=== PATIENT | female | born 1990 | race Caucasian/White ===

== ENCOUNTER 2016-05-31 17:47 | Emergency (ER) | payer OTHER ==
[~2016-05-31] VITALS: Ht 170.2 cm; Wt 107.3 kg
[~2016-05-31 17:47] MED LIST: ENDOCET 5-3251 EACH PO; FIORICET,ESG1 TABLET PO; IBUPROFEN800 MG PO
[2016-05-31 20:20] LABS: ADD MIUA? NO; BILIRUBIN NEGATIVE; BLOOD NEGATIVE; COLOR YELLOW ((YELLOW)); GLUCOSE (STRIP) NEGATIVE; KETONES NEGATIVE; LEUKOCYTES NEGATIVE; NITRITE NEGATIVE; PROTEIN (STRIP) NEGATIVE; SPECIFIC GRAVITY 1.008 (1.000-1.030); UCUL ADDED? NO; UROBILINOGEN 0.2 MG/DL (0.2-1.0)
[2016-05-31 20:58] VITALS: BP 161/80
== END 2016-05-31 20:57 | disposition home or self-care (01) ==
LOC: EME 17:47
PROVIDERS: Physician Assistant
DX: O26.91 Pregnancy related conditions, unspecified, first trimester (principal); Z3A.12 12 weeks gestation of pregnancy; R10.9 Unspecified abdominal pain; S39.92XA Unspecified injury of lower back, initial encounter; X50.1XXA Overexertion from prolonged static or awkward postures, initial encounter; Y92.230 Patient room in hospital as the place of occurrence of the external cause; Y99.0 Civilian activity done for income or pay
CPT/HCPCS: 81003; 99281; 99284

== ENCOUNTER 2016-10-06 16:32 | Outpatient (CLI) | payer OTHER ==
[~2016-10-06] VITALS: Ht 170.2 cm; Wt 113.2 kg
[2016-10-06 16:46] VITALS: BP 123/68
[2016-10-06] MEDS ORDERED: DICLEGIS DR 101 EACH PO ×2 (17:12→17:13)
[2016-10-06] MEDS ORDERED: ZANTAC150 MG PO (17:13)
[2016-10-06 17:14] LABS: EOSINOPHIL (%) 1.2 % (0-5); EOSINOPHIL COUNT 0.1 K/uL (0-0.3); HEMATOCRIT 34.3 % (36.0-46.0); IMMATURE GRANULOCYTE (%) 1.1 % (0.0-0.7); IMMATURE GRANULOCYTE COUNT 0.1 K/uL; INSTRUMENT ABS NEUTROPHIL CT 7.8 K/uL; LYMPHOCYTE COUNT 1.9 K/uL (1.0-2.8); MCH 28.2 PG (29.0-34.0); MCHC 32.9 G/DL (30.0-36.0); MCV 85.5 FL (83-99); MEAN PLAT.VOLUME 10.9 uM^3 (9.5-12.4); MONOCYTE (%) 7.2 % (3-12); MONOCYTE COUNT 0.8 K/uL (0-0.8); NEUTROPHIL (%) 72.9 % (45-76); NEUTROPHIL COUNT 7.8 K/uL (1.8-6.4); PLATELET COUNT 161 K/uL (156-360); RBC DIS.WIDTH-CV 13.4 % (11.8-14.6); RBC DIS.WIDTH-SD 42.2 % (39-53); RED BLOOD COUNT 4.01 M/uL (3.80-5.20); WHITE BLOOD COUNT 10.8 K/uL (4.1-10.2)
[2016-10-06] MEDS ORDERED: FLINTSTONES1 EACH PO (17:14)
[2016-10-06 17:50] VITALS: BP 117/65
[2016-10-06 18:39] VITALS: BP 118/57
[2016-10-06 21:22] LABS: ALKALINE PHOSPHATASE 57 IU/L (3-129); ANION GAP 11 MEQ/L (2-14); CHLORIDE 105 MEQ/L (99-109); GFR ESTIMATE (CALCULATED) > 59 mL/min/; GLUCOSE 105 mg/dL (70-99); POTASSIUM 3.3 MEQ/L (3.7-5.4); SAMPLE HEMOLYSIS CHECK 0; SAMPLE ICTERIC CHECK 0; SAMPLE LIPEMIA CHECK 0; SODIUM 138 MEQ/L (136-147); TOTAL BILIRUBIN 0.2 MG/DL (0.0-1.0); UREA NITROGEN (BUN) 7 mg/dL (9-23)
[2016-10-06 21:48] VITALS: BP 116/55
== END 2016-10-06 22:05 | disposition home or self-care (01) ==
LOC: LDRP-OP 16:32 → 2WEST 16:33 → LDRP-OP 01-13 14:20
PROVIDERS: Midwife; Obstetrics & Gynecology
DX: O36.8130 Decreased fetal movements, third trimester, not applicable or unspecified (principal); Z3A.30 30 weeks gestation of pregnancy
CPT/HCPCS: 59025; 80053; 85025; G0378

== ENCOUNTER 2016-10-07 11:05 | Outpatient (CLI) | payer OTHER ==
[~2016-10-07 11:05] MED LIST changes: +DICLEGIS DR 101 EACH PO; +FLINTSTONES1 EACH PO; +ZANTAC150 MG PO
[2016-10-07 11:23] VITALS: BP 138/63
== END 2016-10-07 13:59 | disposition home or self-care (01) ==
LOC: LDRP-OP 11:05 → 2WEST 11:06 → LDRP-OP 01-13 22:22
DX: O26.893 Other specified pregnancy related conditions, third trimester (principal); R10.13 Epigastric pain; Z3A.30 30 weeks gestation of pregnancy
CPT/HCPCS: 59025; G0378

== ENCOUNTER 2016-12-06 07:28 | Inpatient (IN) | payer OTHER ==
[~2016-12-06] VITALS: Ht 170.2 cm; Wt 116.0 kg
[2016-12-06] MEDS ORDERED: PERCOCET 5/31 TABLET PO (10:15)
[2016-12-06] MEDS ORDERED: MOTRIN800 MG PO (10:15)
[2016-12-06 13:14] VITALS: BP 113/55
[2016-12-06 14:19] VITALS: BP 102/52
[2016-12-06 16:06] VITALS: BP 111/56
[2016-12-06 17:42] VITALS: BP 124/68
[2016-12-06 19:23] VITALS: BP 107/55
[2016-12-06 22:22] VITALS: BP 97/55
[2016-12-07 02:54] VITALS: BP 102/59
[2016-12-07 07:08] LABS: EOSINOPHIL (%) 0.7 % (0-5); EOSINOPHIL COUNT 0.1 K/uL (0-0.3); HEMATOCRIT 33.8 % (36.0-46.0); IMMATURE GRANULOCYTE (%) 0.4 % (0.0-0.7); INSTRUMENT ABS NEUTROPHIL CT 6.5 K/uL; LYMPHOCYTE COUNT 3.3 K/uL (1.0-2.8); MCH 27.1 PG (29.0-34.0); MCV 84.9 FL (83-99); MEAN PLAT.VOLUME 11.7 uM^3 (9.5-12.4); MONOCYTE (%) 6.9 % (3-12); MONOCYTE COUNT 0.7 K/uL (0-0.8); NEUTROPHIL COUNT 6.5 K/uL (1.8-6.4); PLATELET COUNT 120 K/uL (156-360); RBC DIS.WIDTH-CV 13.8 % (11.8-14.6); RBC DIS.WIDTH-SD 43.2 % (39-53); RED BLOOD COUNT 3.98 M/uL (3.80-5.20); WHITE BLOOD COUNT 10.6 K/uL (4.1-10.2)
[2016-12-07 07:49] VITALS: BP 100/61
[2016-12-07 11:24] VITALS: BP 110/67
[2016-12-07 15:22] VITALS: BP 110/64
[2016-12-08 07:22] VITALS: BP 115/66
== END 2016-12-08 12:30 | disposition home or self-care (01) | DRG 766 ==
LOC: 2WEST 07:28 → 2SOUTH 07:34 → 2WEST 12-08 12:30
PROVIDERS: Obstetrics & Gynecology
PROC: 10D00Z1 Extraction of Products of Conception, Low, Open Approach (ICD-10-PCS; principal; 2016-12-06)
DX: O34.211 Maternal care for low transverse scar from previous cesarean delivery (principal); Z37.0 Single live birth; Z3A.39 39 weeks gestation of pregnancy; E66.9 Obesity, unspecified; Z68.36 Body mass index [BMI] 36.0-36.9, adult; O99.213 Obesity complicating pregnancy, third trimester
CPT/HCPCS: 36415; 85025; 86900; 86901; J1100; J1885; J2274; J2405; J3010; J7120